=== PATIENT | female | born 1935 | race Caucasian/White ===

== ENCOUNTER → 2016-04-20 | Outpatient (CLI) | payer OTHER ==
[~2016-04-20] MED LIST: ASPEC325 PO; AZL/5 PO; FRRG PO; LEVO25TA5 PO; MBC75 PO; NRV5 PO; OFLO0.3S4 OPL; PRED1SUS3 OPB; ULT50X PO
--- NOTE | 2016-04-20 11:16 | DIAGNOSTIC IMAGING REPORT ---
MRI OF THE LUMBAR SPINE WITHOUT IV CONTRAST CLINICAL HISTORY: Disc herniation. COMPARISON STUDY: No priors. TECHNIQUE: MRI of lumbar spine is performed utilizing various T1 and T2-weighted sequences in the axial and sagittal planes. IV contrast was not administered for this examination. The examination includes from T10 to the sacrum. FINDINGS: Lumbar spine: Vertebral body height and alignment are maintained throughout the lumbar spine. Marrow signal intensity is heterogeneous. Chronic degenerative endplate change is present at L1-L2, L3-L4, and L4-L5. Endplate edema is noted at L4-L5. There are mild superior endplate compression deformities of T11 and T12. These demonstrate mild marrow edema and are likely acute to subacute. There is only minimal retropulsion of fragments at T12 which measures up to 3 mm. This does not cause significant acquired compromise of the central canal at this level. The transverse and spinous processes are intact as visualized. There is no evidence of spondylolysis. No destructive osseous lesion is identified. Intervertebral discs: There is degenerative disc desiccation and loss of height throughout the lumbar spine. Loss of height is moderate to severe at L5-S1. Spinal cord: The visualized spinal cord is normal in morphology and signal intensity. The conus medullary terminates at the level of L1. The nerve roots of the cauda equina are normal in morphology. T10-T11: Unremarkable. T11-T12: There is a tiny retropulsed fragment at this level. The central canal and neural foramina are widely patent. T12-L1: Unremarkable. L1-L2: Unremarkable. L2-L3: Unremarkable. L3-L4: There is minimal posterior disc bulge. The central canal and neural foramina are patent. There is minimal bilateral subarticular stenosis. L4-L5: There is posterior disc bulge and annular fissure. In conjunction with hypertrophy of the ligamentum flavum there is moderate central canal stenosis at this level. The minimum AP canal diameter measures 6 mm. There is bilateral subarticular stenosis with possible impingement on the exiting bilateral L4 nerve roots. There may also be impingement on the transiting L5 nerve roots. L5-S1: There is a minimal posterior disc bulge with annular fissure. There is no significant acquired compromise of the central canal. There is mild left-sided subarticular stenosis with possible impingement on the exiting left L5 nerve root. Facet arthropathy causes minimal neural foraminal stenosis. Sacrum: Visualized sacrum is normal in morphology and signal intensity. Soft tissues: There is fatty atrophy of the paraspinous musculature. The kidneys demonstrate cortical atrophy and there are numerous bilateral renal cysts. A large hepatic cyst is partially imaged. Note that the retroperitoneal structures are incompletely assessed. IMPRESSION: 1. There is no disc herniation identified as clinically queried. 2. There are mild superior endplate compression deformities of T11 and T12. These demonstrate mild marrow edema and are likely acute to subacute. Minimally retropulsed fragments are identified at T12. This does not cause significant acquired compromise of the central canal. 3. Lumbosacral spondylosis as above. There is acquired compromise of the central canal at L4-L5. See discussion for detailed level by level analysis. Dictated: 04/20/2016 10:29 AM Transcribed: 04/20/2016 11:15 AM [place] Electronically signed by: Armani Richards M.D. 04/20/2016 11:29 AM Dictated Date/Time: 04/20/2016 10:29 AM
== END | disposition home or self-care (01) ==
LOC: C.MRI 09:34
PROVIDERS: ATTEND Physical Medicine & Rehabilitation
DX: M47.897 Other spondylosis, lumbosacral region (principal)